=== PATIENT | male | born 1955 | race Caucasian/White ===

== ENCOUNTER → 2017-05-25 | Outpatient (CLI) | payer OTHER ==
[2017-05-25 07:39] LABS: EKG EKG PERFORMED
[2017-05-25 08:22] LABS: Basophils # (A) 0.1 k/uL (0-0.2); Basophils % (A) 1 %; CH 29.7; Eosinophils # (A) 0.3 k/uL (0-0.7); Eosinophils % (A) 3 %; HCT 49.5 % (39.0-53.0); HDW 2.35; HGB 16.1 gm/dL (13.0-17.5); Luc # (Auto) 0.16; Luc % (Auto) 2; Lymphocytes # (A) 3.1 k/uL (1.0-4.8); Lymphocytes % (A) 33 %; MCH 30.4 pg (25.0-35.0); MCHC 32.5 g/dL (31.0-37.0); MCV 93.4 fL (80.0-100.0); Monocytes # (A) 0.5 k/uL (0-1.0); Monocytes % (A) 6 %; Neutrophils # (A) 5.1 k/uL (1.3-7.7); Neutrophils % (A) 56 %; WBC 9.2 k/uL (3.8-10.6); WBC (Perox) 8.88
[2017-05-25 08:37] LABS: Anion Gap 10 mmol/L; Carbon Dioxide 23 mmol/L (22-30); Chloride 107 mmol/L (98-107); Potassium 4.4 mmol/L (3.5-5.1); Sodium 140 mmol/L (137-145)
== END | disposition home or self-care (01) ==
LOC: LABPAT 07:15
PROVIDERS: ATTEND Orthopaedic Surgery
DX: Z01.810 Encounter for preprocedural cardiovascular examination (principal); Z01.812 Encounter for preprocedural laboratory examination; S62.333D Displaced fracture of neck of third metacarpal bone, left hand, subsequent encounter for fracture with routine healing
CPT/HCPCS: 36415; 80051; 85025; 93005

== ENCOUNTER 2017-05-26 11:49 | Day surgery (SDC) | payer OTHER ==
--- NOTE | 2017-05-25 10:07 | HP ---
HISTORY AND PHYSICAL DATE OF SERVICE: 05/26/2017 CHIEF COMPLAINT: Left index finger pain. HISTORY OF PRESENT ILLNESS: The patient is a 61-year-old male who presents with left hand pain after an injury on 05/18/2017. He hit his hand on a rafter in his garage when he slipped on a ladder. Initially he was seen at an urgent care facility and placed in a splint. He denies previous injury. PAST MEDICAL HISTORY: Significant for arthritis. PAST SURGICAL HISTORY: Significant for previous right knee surgery and tonsillectomy. CURRENT ALLERGIES: Ibuprofen. ALLERGIES: He denies drug allergies. FAMILY HISTORY: Negative. SOCIAL HISTORY: Negative for current tobacco or alcohol use. REVIEW OF SYSTEMS: A 16-point review of systems is otherwise reviewed and is noncontributory. PHYSICAL EXAMINATION: On examination, the patient is approximately 5 foot 7, 155 pounds, of mesomorphic habitus. HEENT exam is nonfocal. Neck is supple. He is nontender about the left shoulder, elbow and wrist. On examination of his left hand, he has large dorsal swelling over the index metacarpal. He is tender about the index metacarpal neck. No rotational abnormalities noted. He has moderate digital stiffness. Light touch is distally intact. He is nontender about the carpometacarpal joint of the index finger. DIAGNOSTIC STUDIES: X-rays include 2 views of the left hand obtained in the office showing a comminuted index metacarpal neck fracture with 40 degrees apex dorsal angulation. IMPRESSION: Left index finger comminuted metacarpal neck fracture, angulated. RECOMMENDATIONS: I talked to the patient regarding his treatment options. At this point, he opts to proceed with surgery. We will plan to proceed with closed reduction with probable percutaneous pinning. We will likely perform that as an outpatient procedure. Risks and benefits were discussed at length in layman's terms. MMODL / IJN: [id number] /
[2017-05-25 12:37] VITALS: BMI 25.8
[~2017-05-26 11:49] MED LIST: LACTATED RINGERS 1,000 ML IV SCH; MIDAZOLAM 2 MG/2 ML VIAL IV PRN; MORPHINE SULFATE 10 MG/ML SYRINGE IV PRN; ceFAZolin 1,000 MG in DEXTROSE/WATER 1 50ML.BAG IV ONE
[2017-05-26] MEDS: ONDANSETRON 4 MG/2 ML VIAL IVP PRN ×2 (12:27→14:03)
[2017-05-26] MEDS ORDERED: LIDOCAINE 1% INJ 10MG/ML (20 ML MDV) ONE (13:19)
[2017-05-26] MEDS ORDERED: MIDAZOLAM 2 MG/2 ML VIAL ONE (13:19)
[2017-05-26] MEDS ORDERED: fentaNYL (PF) 50 MCG/ML 2 ML AMP ONE (13:19)
[2017-05-26] MEDS ORDERED: PROPOFOL 10 MG/ML 20 ML VIAL IV ONE (13:19)
--- NOTE | 2017-05-26 14:00 | P.OP ---
Date of Procedure: 05/26/17 Preoperative Diagnosis: Displaced left index metacarpal neck fracture Postoperative Diagnosis: Same Procedure(s) Performed: Closed reduction with percutaneous pinning left index metacarpal neck fracture Implants: 0.054 inch K wire 1 Anesthesia: VENUSA Surgeon: Rey Gonzalez Estimated Blood Loss (ml): 2 Pathology: none sent Condition: stable Disposition: PACU Indications for Procedure: The patient is a 61-year-old male presents after injuring his left hand recently. He sustained a closed displaced/angulated left index finger metacarpal neck fracture. A discussion of the risks and benefits of conservative measures versus operative intervention was made with patient. With the initial amount of angulation and shortening, he opted to proceed with surgery. The risks and benefits of the procedure to include infection, neurovascular injury, development of nonunion/malunion/and possible need for subsequent procedures was discussed. Informed consent was obtained. Operative Findings: As below Description of Procedure: The patient was brought to the operating room, and after induction of general anesthesia the left upper extremity was prepped and draped in normal fashion. The left index metacarpal neck fracture was then reduced with dorsiflexion of the fragment. This is verified with fluoroscopy on the AP, lateral, and oblique views. A 0.054 inch K wire was then inserted in the metacarpal head spanning the fracture site proximally. Good purchase was obtained. Final fluoroscopic view showed adequate reduction of the fracture and placement of the implant. The pin was clipped below the level of the skin. A sterile dressing was applied in addition to a volar splint with the hand in functional position. The patient was awoken from general anesthesia and transferred to recovery room in good condition. Blood loss was estimated 2 mL. No complications were incurred.
[2017-05-26 14:03] VITALS: TEMP 98.6
[2017-05-26] MEDS: HYDROmorphone 1 MG/ML 1 ML SYRINGE IVP ONE ×2 (14:03→14:05)
--- NOTE | 2017-05-26 14:10 | XR ---
EXAMINATION TYPE: XR finger LT, FL guidance operating room DATE OF EXAM: 05/26/2017 CLINICAL HISTORY: Left index finger fracture. TECHNIQUE: Fluoroscopy. Limited intraoperative images left second finger. COMPARISON: None. FINDINGS: Fluoroscopic guidance was provided during closed reduction external fixation procedure per formed by Dr. Gonzalez. A total of 15 seconds of fluoroscopic time was utilized during the procedure an d 3 spot intraoperative images are acquired. Images are acquired show placement of external fixating K wire through second metacarpal. Satisfactor y alignment is seen on intraoperative images saved after reduction and fixation. IMPRESSION: As Above.
[2017-05-26] MEDS ORDERED: KETOROLAC 30 MG/ML 1 ML VIAL IVP ONE (14:20)
[2017-05-26] MEDS ORDERED: HYDROmorphone 1 MG/ML 1 ML SYRINGE IVP ONE (14:20)
[2017-05-26 14:22] VITALS: RESP 16
[2017-05-26] MEDS ORDERED: PROMETHAZINE INJ 25 MG/ML 1 ML VIAL IVPB ONE (14:27)
[2017-05-26 16:03] VITALS: BP 117/70; PULSE 54
== END 2017-05-26 16:40 | disposition home or self-care (01) ==
LOC: OR 11:49
PROVIDERS: ATTEND Orthopaedic Surgery
DX: S62.252A Displaced fracture of neck of first metacarpal bone, left hand, initial encounter for closed fracture (principal); E07.9 Disorder of thyroid, unspecified; Z87.891 Personal history of nicotine dependence; Z88.6 Allergy status to analgesic agent; W18.09XA Striking against other object with subsequent fall, initial encounter; Y92.008 Other place in unspecified non-institutional (private) residence as the place of occurrence of the external cause
CPT/HCPCS: 26608; 73140; C1713; J2250; J2550; J2405; J2001; J3010; J1885; J1170; J2704

== ENCOUNTER 2019-10-16 09:15 | Emergency (ER) | payer OTHER ==
[2019-10-16 09:23] VITALS: TEMP 98.1
[2019-10-16] MEDS ORDERED: ASPIRIN 81 MG PO STA (09:34)
[2019-10-16 09:53] LABS: Basophils % (A) 1 %; Eosinophils # (A) 0.2 k/uL (0-0.7); Eosinophils % (A) 3 %; HCT 46.9 % (39.0-53.0); HGB 15.8 gm/dL (13.0-17.5); Lymphocytes # (A) 3.6 k/uL (1.0-4.8); Lymphocytes % (A) 40 %; MCHC 33.6 g/dL (31.0-37.0); MCV 89.2 fL (80.0-100.0); Mean Platelet Volume 7.8; Monocytes # (A) 0.4 k/uL (0-1.0); Monocytes % (A) 5 %; Neutrophils # (A) 4.3 k/uL (1.3-7.7); Neutrophils % (A) 48 %; Platelet Count 252 k/uL (150-450); RBC 5.25 m/uL (4.30-5.90); RDW 12.7 % (11.5-15.5); WBC 8.9 k/uL (3.8-10.6)
--- NOTE | 2019-10-16 09:58 | XR ---
EXAMINATION TYPE: XR chest 2V DATE OF EXAM: 10/16/2019 HISTORY: Chest Pain. REFERENCE: NONE. FINDINGS: The lungs are overinflated. The lungs are clear. Pleural clear. The heart is not enlarged. IMPRESSION: COPD.
--- NOTE | 2019-10-16 10:01 | ED ---
Chest Pain HPI - General Chief Complaint: Chest Pain Stated Complaint: LEFT CHEST, ARM, BACK PAIN Time Seen by Provider: 10/16/19 09:25 Source: patient, RN notes reviewed Mode of arrival: ambulatory Limitations: no limitations - History of Present Illness Initial Comments: This a 64-year-old male presents emergency Department chief complaint of pain in his left scapular region. Patient states has been present for last 7 days or so he states he does come and go states that he didn't activity all day yesterday which is not worsened it. Patient states that currently his symptoms are gone but states occasionally the pain is worse with movement. He has no associated shortness of breath or anterior chest pain this time no prior cardiac disease. Patient states that he has history of hypothyroidism otherwise does not take any other medications. Patient denies abdominal pain, nausea vomiting no fevers or chills. Patient believes that he may have pulled a muscle. - Related Data Home Medications Medication Instructions Recorded Confirmed Levothyroxine Sodium 100 mcg PO DAILY 10/16/19 10/16/19 Previous Rx's Medication Instructions Recorded Ibuprofen [Motrin] 600 mg PO Q8HR PRN #20 tab 10/16/19 Allergies Allergy/AdvReac Type Severity Reaction Status Date / Time No Known Allergies Allergy Verified 10/16/19 10:51 Review of Systems ROS Statement: Those systems with pertinent positive or pertinent negative responses have been documented in the HPI. ROS Other: All systems not noted in ROS Statement are negative. EKG Findings - EKG Comments: EKG Findings:: EKG performed at 9:35 sinus bradycardia rate of 56 CA 170 QRS 82 QT/QTC 410/395 Past Medical History Past Medical History: No Reported History History of Any Multi-Drug Resistant Organisms: None Reported Past Surgical History: Orthopedic Surgery, Tonsillectomy Additional Past Surgical History / Comment(s): ACL rt knee surgery x 2, rt knee arthroscopy, left index finger fx Past Anesthesia/Blood Transfusion Reactions: Postoperative Nausea & Vomiting (PONV) Past Psychological History: No Psychological Hx Reported Smoking Status: Former smoker Past Alcohol Use History: None Reported Past Drug Use History: None Reported - Past Family History Mother Family Medical History: No Reported History General Exam Limitations: no limitations General appearance: alert, in no apparent distress Head exam: Present: atraumatic, normocephalic, normal inspection Eye exam: Present: normal appearance, PERRL, EOMI. Absent: scleral icterus, conjunctival injection, periorbital swelling ENT exam: Present: normal exam, normal oropharynx, mucous membranes moist Neck exam: Present: normal inspection, full ROM. Absent: tenderness, meningismus, lymphadenopathy Respiratory exam: Present: normal lung sounds bilaterally. Absent: respiratory distress, wheezes, rales, rhonchi, stridor Cardiovascular Exam: Present: regular rate, normal rhythm, normal heart sounds. Absent: systolic murmur, diastolic murmur, rubs, gallop, clicks GI/Abdominal exam: Present: soft, normal bowel sounds. Absent: distended, tenderness, guarding, rebound, rigid Course Vital Signs 10/16/19 10/16/19 10/16/19 09:21 09:37 09:40 Temperature 98.1 F Pulse Rate 76 60 Pulse Rate [ 67 It Service Delivery Manager ] Respiratory 16 14 Rate Blood Pressure 129/82 O2 Sat by Pulse 98 97 Oximetry 10/16/19 10/16/19 10:00 10:30 Temperature Pulse Rate 58 L 58 L Pulse Rate [ It Service Delivery Manager ] Respiratory 14 12 Rate Blood Pressure 150/78 131/89 O2 Sat by Pulse 98 98 Oximetry Chest Pain MDM - MDM 64-year-old male presented for left scapular pain. Patient has a negative workup this time including CBC, CMP, troponin EKG does not reveal any acute MIs does have some reproducible pain and pain with movement. CT of the chest was performed secondary to elevated d-dimer which is negative for PE. I do feel this is related to muscle skeletal. He was evaluated by attending physician, patient recommended to have stress test patient agrees with this plan return parameters were discussed. Disposition Clinical Impression: Posterior chest pain, Muscle strain of chest wall Disposition: HOME SELF-CARE Condition: Stable Instructions (If sedation given, give patient instructions): Muscle Strain (ED) Additional Instructions: Please return to the Emergency Department if symptoms worsen or any other concerns. Prescriptions: Ibuprofen [Motrin] 600 mg PO Q8HR PRN #20 tab PRN Reason: Pain Is patient prescribed a controlled substance at d/c from ED?: No Referrals: Heriberto Lazaro MD [Primary Care Provider] - 1-2 days Time of Disposition: 11:13
[2019-10-16 10:03] LABS: ALT 18 U/L (4-49); AST 34 U/L (17-59); African American GFR (CKD) >90 (>60 ml/min/1.73 sqM); Albumin 4.3 g/dL (3.5-5.0); Alkaline Phosphatase 84 U/L (38-126); Anion Gap 7 mmol/L; Blood Urea Nitrogen 13 mg/dL (9-20); Calcium 9.3 mg/dL (8.4-10.2); Carbon Dioxide 23 mmol/L (22-30); Chloride 107 mmol/L (98-107); Glucose 96 mg/dL (74-99); Non-African American GFR(CKD) 89 (>60 ml/min/1.73 sqM); Potassium 4.1 mmol/L (3.5-5.1); Sodium 137 mmol/L (137-145); Total Bilirubin 0.3 mg/dL (0.2-1.3); Total Protein 7.3 g/dL (6.3-8.2)
[2019-10-16 10:11] LABS: INR 0.9 (<1.2); Partial Thromboplastin Time 27.5 sec (22.0-30.0); Prothrombin Time 9.5 sec (9.0-12.0)
[2019-10-16 10:20] LABS: D-Dimer 0.97 mg/L FEU (<0.60)
--- NOTE | 2019-10-16 10:56 | CT ---
EXAMINATION TYPE: CT chest angio for PE DATE OF EXAM: 10/16/2019 COMPARISON: None. HISTORY: Left sided chest pain. CT DLP: 323.2 mGycm Automated exposure control for dose reduction was used. CONTRAST: CT Chest for pulmonary embolism performed with with IV Contrast, patient injected with 67ml mL of Iso juana 370. FINDINGS: There is mild, diffuse groundglass opacity throughout the lungs. There is associated emphys ematous change. This may represent ongoing alveolitis. Pneumonitis can give a similar appearance. The re is some dependent atelectasis in the dependent portions of the lungs. There is no significant axillary, mediastinal or hilar adenopathy. There is no pleural or pericardial fluid. The heart is not enlarged. There is no evidence of pulmonary embolus. The aorta is normal in caliber without evidence of dissection. Visualized portions of the upper abdomen are unremarkable. There is mild hypertrophic spondylosis within the spine. IMPRESSION: 1. THIS EXAMINATION IS NEGATIVE FOR PULMONARY EMBOLUS. 2. BACKGROUND OF MILD EMPHYSEMATOUS CHANGE WITH ASSOCIATED GROUNDGLASS OPACITY WHICH MAY REPRESENT ON GOING ALVEOLITIS IF THE PATIENT IS A CURRENT SMOKER.
[2019-10-16 11:35] VITALS: BP 138/92; PULSE 59; RESP 17
== END 2019-10-16 11:35 | disposition home or self-care (01) ==
LOC: EC 09:15
DX: S29.011A Strain of muscle and tendon of front wall of thorax, initial encounter (principal); R07.89 Other chest pain; E03.9 Hypothyroidism, unspecified; Z79.890 Hormone replacement therapy; Z87.891 Personal history of nicotine dependence
CPT/HCPCS: 36415; 93005; 85379; 80053; 83735; 84484; 85025; 85610; 85730; 71046; 71275; 99284; Q9967

== ENCOUNTER → 2021-07-02 | Outpatient (CLI) | payer MEDICARE ==
--- NOTE | 2021-07-02 09:51 | MR ---
EXAMINATION TYPE: MR shoulder LT wo con DATE OF EXAM: 07/02/2021 COMPARISON: Shoulder x-ray 01/11/2021 HISTORY: Pain TECHNIQUE: Multiplanar, multisequence imaging of the left shoulder is performed without contrast. FINDINGS: There is diffuse thickening and abnormal signal involving the distal several centimeters of the supraspinatus and infraspinatus tendons. On the distal margin the supraspinatus tendon there is a 1.7 cm through thickness tear. Severe tendinopathy and partial through thickness tear of the infras pinatus tendon. Subscapularis appears intact. Abnormal signal seen involving the superior labrum suspicious for tear. Small amount of fluid is seen at glenohumeral joint and there is arthropathy of the AC joint and glenohumeral joint. Thickening and increased intrasubstance signal of the intracapsular portion of the biceps tendon sugg estive of tendinosis and partial intrasubstance tear. Bicipital tendon is situated in the bicipital g roove. No significant marrow edema or contusion. Suprascapular notch has a normal appearance. IMPRESSION: 1. Diffuse thickening and increased signal involving the distal margin of the supraspinatus and infra spinatus tendons compatible severe tendinosis. There is a through thickness near complete tear of the supraspinatus tendon minimal fibers remaining. 2. There is a through thickness partial tear of the anterior fibers of the infraspinatus tendon. 3. AC joint arthropathy does appear to result in mild mass effect upon the supraspinatus tendon and m uscle. 3. Suspect anterior superior labral tear
== END | disposition home or self-care (01) ==
LOC: RADMRIMAIN 08:22
PROVIDERS: ATTEND Orthopaedic Surgery
DX: M19.012 Primary osteoarthritis, left shoulder (principal); M75.112 Incomplete rotator cuff tear or rupture of left shoulder, not specified as traumatic; M67.814 Other specified disorders of tendon, left shoulder

== ENCOUNTER → 2021-09-02 | Outpatient (CLI) | payer MEDICARE ==
[2021-09-02 22:50] LABS: Basophils # (A) 0.06 X 10*3/uL (0.00-0.10); Basophils % (A) 0.6 %; Eosinophils # (A) 0.16 X 10*3/uL (0.04-0.35); Eosinophils % (A) 1.6 %; HGB 14.7 g/dL (13.0-17.0); Immature Grans, Automated 0.3 %; Lymphocytes # (A) 4.03 X 10*3/uL (0.90-5.00); Lymphocytes % (A) 39.1 %; MCH 29.9 pg (27.0-32.0); MCHC 32.7 g/dL (32.0-37.0); MCV 91.6 fL (80.0-97.0); Mean Platelet Volume 10.4 fL (9.5-12.2); Monocytes # (A) 0.84 X 10*3/uL (0.20-1.00); Monocytes % (A) 8.2 %; NRBC Per 100 WBC 0 /100 WBCS (0.0-0.0); Neutrophils # (A) 5.18 X 10*3/uL (1.80-7.70); Neutrophils % (A) 50.2 %; Platelet Count 261 X 10*3/uL (140-440); RBC 4.91 X 10*6/uL (4.40-5.60); RDW 12.5 % (11.5-14.5)
[2021-09-02 23:13] LABS: African American GFR (CKD) 101.8 (60.0-200.0); Anion Gap 10.4 mmol/L (10.00-18.00); BUN/Creat Ratio 15.52 Ratio (12.00-20.00); Calcium 8.9 mg/dL (8.7-10.3); Carbon Dioxide 22.2 mmol/L (20.0-27.5); Non-African American GFR(CKD) 87.8 (60.0-200.0); Potassium 4.1 mmol/L (3.5-5.5)
== END | disposition home or self-care (01) ==
LOC: LABPAT 15:25
PROVIDERS: ATTEND Orthopaedic Surgery
DX: Z01.812 Encounter for preprocedural laboratory examination (principal); M75.42 Impingement syndrome of left shoulder
CPT/HCPCS: 80048; 85025

== ENCOUNTER 2021-09-06 09:22 | Day surgery (SDC) | payer MEDICARE ==
--- NOTE | 2021-09-05 10:18 | HP ---
HISTORY AND PHYSICAL CHIEF COMPLAINT: Left shoulder pain. HISTORY OF PRESENT ILLNESS: The patient is a 66-year-old, right-hand dominant, retired gentleman who presents with progressive left shoulder pain for the past year. He denies any specific injury. He notes pain with overhead use and at night. It bothers him daily. He has tried medications in addition to therapy without much if any relief. PAST MEDICAL HISTORY: Significant for hypothyroidism. PAST SURGICAL HISTORY: Significant for previous knee surgery, tonsillectomy, and left hand surgery. CURRENT MEDICATIONS: Ibuprofen. ALLERGIES: He denies drug allergies. FAMILY HISTORY: Negative. SOCIAL HISTORY: Negative for current tobacco or alcohol use. REVIEW OF SYSTEMS: 16-point review of systems otherwise reviewed and is noncontributory. PHYSICAL EXAMINATION: On examination, the patient is approximately 5 foot 7, 158 pounds of mesomorphic habitus. HEENT exam is nonfocal. NECK is supple. On the left shoulder, he is tender about the anterior subacromial space. He has mild crepitus. Active range of motion forward elevation 155 degrees, external rotation, arm at side 75 degrees, internal rotation to T12. Motor strength 5 -/5 for external rotation, 4+/5 for abduction. Impingement test, Neer test, and Speed test are positive. His distal neurovascular exam appears intact in the left upper extremity. MRI report 07/02/2021 of the left shoulder shows severe rotator cuff tendinosis along with a 1.7 cm supraspinatus tear. IMPRESSION: 1. Left shoulder impingement with severe rotator cuff tendinitis/symptomatic tear. 2. Left proximal bicipital tendinosis. RECOMMENDATIONS: I talked to the patient at length regarding his condition along with treatment options. At this point, he is quite symptomatic and limited because of pain despite previous conservative measures. After thorough discussion, he opts to proceed with surgery. We will plan to proceed with left shoulder arthroscopy with possible rotator cuff debridement versus repair. We will also plan on subacromial decompression and possible biceps tenotomy. Risks and benefits were discussed at length in layman's terms. MMODL / IJN: [id number] /
[2021-09-05 11:30] VITALS: BMI 25.0
[~2021-09-06 09:22] MED LIST changes: +DEXAMETHASONE SOD PHOSPHATE 4 MG/ML 1 ML VIAL IV ONE; -MORPHINE SULFATE 10 MG/ML SYRINGE IV PRN; +ONDANSETRON 4 MG/2 ML VIAL IVP ONE; -ceFAZolin 1,000 MG in DEXTROSE/WATER 1 50ML.BAG IV ONE
[2021-09-06] MEDS ORDERED: LIDOCAINE 1% (10MG/ML) FOR IV START INTRADERMA ONE (10:11)
[2021-09-06] MEDS ORDERED: fentaNYL (PF) 50 MCG/ML 2 ML AMP IV ONE (10:28)
[2021-09-06] MEDS ORDERED: ePHEDrine 50 MG/ML 1 ML VIAL ONE (11:10)
[2021-09-06] MEDS ORDERED: PROPOFOL 10 MG/ML 20 ML VIAL IV ONE (11:10)
[2021-09-06] MEDS ORDERED: PHENYLEPHRINE-0.9% NACL SYG 1,000 MCG/10 ML SYRINGE ONE (11:10)
[2021-09-06] MEDS ORDERED: SUCCINYLCHOLINE CHLORIDE 100 MG/5 ML SYR IV ONE (11:10)
[2021-09-06] MEDS ORDERED: GLYCOPYRROLATE 0.2 MG/ML 2 ML VIAL ONE (11:10)
[2021-09-06] MEDS ORDERED: ROPIVACAINE 5 MG/ML 30 ML VIAL ONE (11:10)
[2021-09-06] MEDS ORDERED: ROCURONIUM 10 MG/ML (5 ML VIAL) IV ONE (11:10)
[2021-09-06] MEDS ORDERED: fentaNYL (PF) 50 MCG/ML 2 ML AMP ONE (11:10)
[2021-09-06] MEDS ORDERED: LIDOCAINE 1% INJ 10MG/ML (20 ML MDV) ONE (11:10)
[2021-09-06] MEDS ORDERED: NEOSTIGMINE 1 MG/ML 10 ML VIAL ONE (11:10)
[2021-09-06] MEDS ORDERED: MIDAZOLAM 2 MG/2 ML VIAL ONE (11:10)
--- NOTE | 2021-09-06 11:12 | P.ANPRN ---
Procedure Note - Anesthesia - Nerve Block Performed Left Interscalene Single Time Out Performed: Yes (1028) Date of Procedure: 09/06/21 Procedure Start Time: 10:29 Procedure Stop Time: 10:35 Location of Patient: PreOp Indication: Acute Post-Operative Pain, Requested by Surgeon Specifically requested for management of pain by : Rey Gonzalez Sedation Type: Sedate with meaningful contact maintained Preparation: Sterile Prep Position: Supine Catheter: None Needle Types: Pajunk Needle Gauge: 21 Ultrasound used to visualize needle placement: Yes Ultrasound used to observe medication spread: Yes Injectate: 0.5% Ropivacaine (see comment for volume) (30) Blood Aspirated: No Pain Paresthesia on Injection Noted: No Resistance on Injection: Normal Image Stored and Saved: Yes Events: Uneventful and Well Tolerated
[2021-09-06] MEDS ORDERED: EPINEPHRINE IRRIGATION ONE (11:40)
[2021-09-06] MEDS ORDERED: SODIUM CHLORIDE IRRIGATION ONE (11:40)
[2021-09-06] MEDS ORDERED: LACTATED RINGERS 1,000 ML IV ONE (12:33)
--- NOTE | 2021-09-06 12:43 | P.OP ---
Date of Procedure: 09/06/21 Preoperative Diagnosis: Symptomatic left rotator cuff tear Postoperative Diagnosis: 3 cm left rotator cuff tear/high-grade partial-thickness tear intra-articular portion long head of biceps Procedure(s) Performed: Left shoulder arthroscopic subacromial decompression/biceps tenotomy/rotator cuff repair Implants: Arthrex 4.75 mm swivel lock anchor 2, 5.5 mm swivel lock anchor 2 Anesthesia: EZE, kirti Surgeon: Rey Gonzalez [employer] Spring Upholsterer #1: Nikita Sanford Estimated Blood Loss (ml): 10 Pathology: none sent Condition: stable Disposition: PACU Indications for Procedure: The patient's a 66-year-old male who presents with progressive left shoulder pain despite conservative measures. A discussion of the risks and benefits of operative intervention versus continued conservative measures was made with patient. He opted to proceed with surgery. Operative risks to include infection, neurovascular injury, development of blood clots, possible tendon rerupture, possible need for subsequent procedures was discussed. Informed c onsent was obtained. Operative Findings: As below Description of Procedure: The patient was brought to the operating room, and after induction of general anesthesia was placed in a beachchair position. A preoperative interscalene block was placed for postoperative analgesia. I examined the left shoulder. There was no gross block to passive motion or gross glenohumeral instability. The left upper extremity was prepped and draped in normal fashion. The bony outlines the acromion, distal clavicle, and coracoid process were outlined with a skin marker. The glenohumeral joint was inflated with 50 mL of saline utilizing a spinal needle from posterior approach. A posterior portal was made through a 5 mm skin incision 1 cm medial and inferior to the posterior lateral border time. A blunt trocar was used to easily into the joint. Diagnostic arthroscopy was performed. An anterior portal was made just lateral to the coracoid process entering the joint above the subscapularis tendon. The subscapularis tendon appeared to be intact. Anterior labrum was intact. The inferior recess was inspected. The posterior labrum was intact. There was a high-grade partial-thickness tear of the long head of the biceps involving interarticular portion. It was elected to proceed with release at this point. This was released from the superior labrum with electrocautery and was allowed to retract to the bicipital groove. On inspection the rotator cuff, a full- thickness tear involving the supraspinatus and a portion of the infraspinatus was noted. The arthroscope was placed into the subacromial space. A lateral portal was made 2 centimeters inferior to the anterior lateral border of the acromion. The rotator cuff was then mobilized with a traction suture. This was then easily brought back to the greater tuberosity. The soft tissue on the undersurface of the acromion was debrided with a motorized shaver and electrocautery clearly defining the anterior medial and lateral borders as well as the distal clavicle. An anterior inferior acromioplasty was performed with a motorized guerline starting anterolateral, then extending this posteriorly, then extending this medially. I converted to a flat acromion and this was verified in the posterior and lateral viewing portals. The greater tuberosity was lightly decorticating with a shaver down to a bleeding bony surface. An accessory superior lateral portals made just off the lateral edge of the acromion for anchor placement. 2 anchors were then placed just off the articular surface with the appropriate starting awl. 4.75 mm anchors preloaded with #2 fiber tape were placed. Good purchase was obtained. These fiber tapes were then passed the rotator cuff with a scorpion suture passer. A lateral row was created crisscrossing these tapes. 5.5 mm swivel lock anchors x2 were placed laterally. Good purchase was obtained. Final arthroscopic view showed adequate compression at the footprint. The arthroscope was then removed. The portals were closed with simple 3-0 nylon sutures. A sterile dressing was applied in addition to a sling. The patient was then awoken from general anesthesia and transferred to recovery room in good condition. Blood loss was estimated at 10 mL. No complications were incurred. Sponge and needle counts were correct in the case. Nikita VERA assisted and the major components of the case to include arm positioning, anchor placement, and rotator cuff repair.
[2021-09-06] MEDS: HYDROmorphone 0.5 MG/0.5 ML SYRINGE IVP PRN ×3 (12:52→13:05)
[2021-09-06 13:01] VITALS: TEMP 97
[2021-09-06] MEDS: fentaNYL (PF) 50 MCG/ML 2 ML AMP IVP ONE ×2 (13:20→13:33)
[2021-09-06 16:06] VITALS: RESP 16
[2021-09-06 16:18] VITALS: BP 119/64; PULSE 65
== END 2021-09-06 16:45 | disposition home or self-care (01) ==
LOC: OR 09:22
PROVIDERS: ATTEND Orthopaedic Surgery
DX: M75.42 Impingement syndrome of left shoulder (principal); M75.102 Unspecified rotator cuff tear or rupture of left shoulder, not specified as traumatic; E03.9 Hypothyroidism, unspecified; S46.112A Strain of muscle, fascia and tendon of long head of biceps, left arm, initial encounter; X58.XXXA Exposure to other specified factors, initial encounter; F17.210 Nicotine dependence, cigarettes, uncomplicated; E07.9 Disorder of thyroid, unspecified; F41.9 Anxiety disorder, unspecified; K21.9 Gastro-esophageal reflux disease without esophagitis; Z79.890 Hormone replacement therapy; Z79.1 Long term (current) use of non-steroidal anti-inflammatories (NSAID); Z79.891 Long term (current) use of opiate analgesic
CPT/HCPCS: 64415; 76942; 29826; 29827; C1713 ×3; C1894; J2250; J1100; J2710; J0690; J2405; J0171; J2001; J3010; J2795; J2370; J0330; J2704; J1170

== ENCOUNTER → 2022-02-05 | Day surgery (SDC) | payer MEDICARE ==
[2022-02-04 12:39] VITALS: BMI 25.0
[~2022-02-05] MED LIST changes: -DEXAMETHASONE SOD PHOSPHATE 4 MG/ML 1 ML VIAL IV ONE; +LIDOCAINE 1% (10MG/ML) FOR IV START INTRADERMA PRN; +LIDOCAINE 2% INJ 20 MG/ML (2 ML VIAL) ONE; -MIDAZOLAM 2 MG/2 ML VIAL IV PRN; -ONDANSETRON 4 MG/2 ML VIAL IVP ONE; +PROPOFOL 10 MG/ML 20 ML VIAL IV ONE
[2022-02-05 10:14] VITALS: RESP 16; TEMP 97.4
--- NOTE | 2022-02-05 11:19 | P.PCN ---
Date of Procedure: 02/05/22 Procedure(s) Performed: BRIEF HISTORY: Patient is a 66-year-old pleasant white may scheduled for an elective colonoscopy as a part of screening for colorectal neoplasia PROCEDURE PERFORMED: Colonoscopy. PREOPERATIVE DIAGNOSIS: Screening for colon cancer. IV sedation per Anesthesia. PROCEDURE: After informed consent was obtained, the patient, was brought into the endoscopy unit. IV sedation was administered by Anesthesia under continuous monitoring. Digital rectal examination was normal. Initially the Olympus CF-160 flexible video colonoscope was then inserted in the rectum, gradually advanced into the cecum without any difficulty. Careful examination was performed as the scope was gradually being withdrawn. Ileocecal valve and the appendiceal orifice were visualized and appeared normal. Prep was excellent. Mucosa of the cecum, ascending colon, transverse colon, descending colon, sigmoid colon, and rectum appeared normal. Scattered sigmoid diverticulosis. Retroflexion was performed in the rectum and no lesions were seen. The patient tolerated the procedure well. IMPRESSION: Normal-appearing colon from rectum to cecum with no evidence of colorectal neoplasia Scattered sigmoid diverticula. RECOMMENDATIONS: Findings of this examination were discussed with the patient as well as his family. He was advised to have a repeat screening colonoscopy in 10 years..
[2022-02-05 11:37] VITALS: BP 128/73; PULSE 63
== END ==
LOC: ORWHC2ENDO 09:04
PROVIDERS: ATTEND Internal Medicine Gastroenterology
DX: Z12.11 Encounter for screening for malignant neoplasm of colon (principal); K57.30 Diverticulosis of large intestine without perforation or abscess without bleeding; Z79.899 Other long term (current) drug therapy; E07.9 Disorder of thyroid, unspecified; K21.9 Gastro-esophageal reflux disease without esophagitis
CPT/HCPCS: J2704; J2001; G0121; 45378

== ENCOUNTER 2023-12-11 18:48 | Emergency (ER) | payer MEDICARE ==
[2023-12-11 18:59] VITALS: BP 140/86; PULSE 75; RESP 18; TEMP 98.2
[2023-12-11] MEDS: ORPHENADRINE 30 MG/ML 2 ML VIAL IVP STA (19:50)
[2023-12-11] MEDS: HYDROmorphone 0.5 MG/0.5 ML SYRINGE IVP STA (19:51)
[2023-12-11] MEDS: KETOROLAC 15 MG/ML 1 ML VIAL IVP STA (22:17)
--- NOTE | 2023-12-11 22:45 | CT ---
EXAMINATION TYPE: CT chest wo con CT DLP: 355.3 mGycm, Automated exposure control for dose reduction was used. DATE OF EXAM: 12/11/2023 8:18 PM COMPARISON: None. . CLINICAL INDICATION:Male, 68 years old with history of right sided injury; PHH, Fall, right rib pain TECHNIQUE: Multiple axial images were obtained through the chest. Sagittal and coronal reformats were created for review. Contrast used: mL of (None if empty) Oral contrast used: (None if empty) FINDINGS: LUNGS/ PLEURA: The lung volumes are diminished and there is mild stranding basilar opacity suggesting airspace disease. There is no significant consolidation, pleural effusion, or pneumothorax. Mild api jose emphysema. Thyroid appears grossly unchanged. AIRWAY: Central airways are patent. LOWER NECK: No significant findings. MEDIASTINUM: No enlarged nodes by CT size criteria. HEART: Normal heart size. . VASCULATURE: Mild atherosclerotic calcifications of the aorta and branches. Ascending aorta is 3.2 C M, descending is 3 CM. Aorta is considered Pulmonary trunk measures 2.6 CM. Pulmonary trunk is normal in size. SOFT TISSUES/LYMPH NODES: Unremarkable soft tissues. No axillary adenopathy. UPPER ABDOMEN: Limited cuts demonstrate no mass of the visualized adrenals. MUSCULOSKELETAL: Acute appearing displaced fracture of the right lateral eighth rib. Mild degenerativ e changes. IMPRESSION: * Acute mildly displaced fracture of the right lateral eighth rib. * No acute abnormality otherwise within in the chest.
--- NOTE | 2023-12-12 01:41 | ED ---
General Adult HPI - General Chief complaint: Fall Stated complaint: Fall, no thinners Time Seen by Provider: 12/11/23 19:08 Source: patient, RN notes reviewed Mode of arrival: ambulatory Limitations: no limitations - History of Present Illness Initial comments: 68-year-old male presents to the emergency department for evaluation of right- sided rib pain. Patient states that he took a fall on Thursday and since then has had pain in the right side of his rib cage. Patient reports that he fell and hit his right side on the corner of the table. He states that this has gotten worse over the past couple of days. He reports that it is worse with movements and inspiration. He does report hitting his head with the injury. He states that this was minor and did not cause him any pain. He denies blood thinners, loss of consciousness, headache, vomiting. - Related Data Home Medications Medication Instructions Recorded Confirmed Levothyroxine Sodium 112 mcg PO QAM 07/31/21 02/05/22 Amoxicillin 500 mg PO Q12H 02/04/22 02/05/22 Allergies Allergy/AdvReac Type Severity Reaction Status Date / Time No Known Allergies Allergy Verified 12/11/23 18:58 Review of Systems ROS Statement: Those systems with pertinent positive or pertinent negative responses have been documented in the HPI. ROS Other: All systems not noted in ROS Statement are negative. Past Medical History Past Medical History: Thyroid Disorder Additional Past Medical History / Comment(s): currently being tx with amoxicillin for infected tooth History of Any Multi-Drug Resistant Organisms: None Reported Past Surgical History: Orthopedic Surgery, Tonsillectomy Additional Past Surgical History / Comment(s): ACL rt knee surgery x 2, rt knee arthroscopy, left index finger fx,lt rot cuff repair Past Anesthesia/Blood Transfusion Reactions: Postoperative Nausea & Vomiting (PONV) Past Psychological History: No Psychological Hx Reported Smoking Status: Current some day smoker Past Alcohol Use History: None Reported Past Drug Use History: None Reported - Past Family History Mother Family Medical History: No Reported History General Exam Limitations: no limitations General appearance: alert, in distress (d/t pain) Head exam: Present: atraumatic, normocephalic, normal inspection Eye exam: Present: normal appearance, PERRL, EOMI. Absent: scleral icterus, conjunctival injection, periorbital swelling ENT exam: Present: normal exam, mucous membranes moist Neck exam: Present: normal inspection. Absent: tenderness, meningismus, lymphadenopathy Respiratory exam: Present: normal lung sounds bilaterally, chest wall tenderness (right sided lateral). Absent: respiratory distress, wheezes, rales, rhonchi, stridor Cardiovascular Exam: Present: regular rate, normal rhythm, normal heart sounds. Absent: systolic murmur, diastolic murmur, rubs, gallop, clicks GI/Abdominal exam: Present: soft, normal bowel sounds. Absent: distended, tenderness, guarding, rebound, rigid Extremities exam: Present: normal inspection, full ROM, normal capillary refill. Absent: tenderness, pedal edema, joint swelling, calf tenderness Back exam: Present: normal inspection Neurological exam: Present: alert, oriented X3 Psychiatric exam: Present: normal affect, normal mood Skin exam: Present: warm, dry, intact, normal color. Absent: rash Course Vital Signs 12/11/23 18:54 Temperature 98.2 F Pulse Rate 75 Respiratory 18 Rate Blood Pressure 140/86 O2 Sat by Pulse 97 Oximetry Medical Decision Making - Medical Decision Making Was pt. sent in by a medical professional or institution (, PA, [employer], urgent care, hospital, or [facility]...) When possible be specific @ -No Did you speak to anyone other than the patient for history (EMS, parent, family, police, friend...)? What history was obtained from this source @ -No Did you review nursing and triage notes (agree or disagree)? Why? @ -I reviewed and agree with nursing and triage notes Were old charts reviewed (outside hosp., previous admission, EMS record, old EKG, old radiological studies, urgent care reports/EKG's, [facility] records)? Report findings @ -No old charts were reviewed Differential Diagnosis (chest pain, altered mental status, abdominal pain women, abdominal pain men, vaginal bleeding, weakness, fever, dyspnea, syncope, headache, dizziness, GI bleed, back pain, seizure, CVA, palpatations, mental health, musculoskeletal)? @ -Differential Chest Pain: Stable Angina, Unstable Angina, STEMI, NSTEMI Aortic Dissection, Pneumothorax, Musculoskeletal, Esophageal Spasm GERD, Cholecystitis, Pancreatitis, Zoster, this is not meant to be an all-inclusive list. EKG interpreted by me (3pts min.). @ -None X-rays interpreted by me (1pt min.). @ -None done CT interpreted by me (1pt min.). @ -CT of the chest was obtained which shows a mildly displaced fracture of the eighth rib laterally U/S interpreted by me (1pt. min.). @ -None done What testing was considered but not performed or refused? (CT, X-rays, U/S, labs)? Why? @ -None What meds were considered but not given or refused? Why? @ -None Did you discuss the management of the patient with other professionals (professionals i.e. , PA, [employer], lab, RT, psych nurse, foster care social worker, magazine hand, teacher, national insurance officer, counseling case manager)? Give summary @ -No Was smoking cessation discussed for >3mins.? @ -No Was critical care preformed (if so, how long)? @ -No Were there social determinants of health that impacted care today? How? (Homelessness, low income, unemployed, alcoholism, drug addiction, transportation, low edu. Level, literacy, decrease access to med. care, custodial, rehab)? @ -No Was there de-escalation of care discussed even if they declined (Discuss DNR or withdrawal of care, Hospice)? DNR status @ -No What co-morbidities impacted this encounter? (DM, HTN, Smoking, COPD, CAD, Cancer, CVA, ARF, Chemo, Hep., AIDS, mental health diagnosis, sleep apnea, morbid obesity)? @ -None Was patient admitted / discharged? Hospital course, mention meds given and route, prescriptions, significant lab abnormalities, going to OR and other pertinent info. @ -Patient left prior to receiving discharge paperwork. Patient presented to the emergency department for evaluation of right chest wall pain following a fall. He was provided medication for pain control in the emergency department. He underwent a chest CT which showed a mildly displaced fracture of the eighth rib. Results were significantly delayed due to increased radiology read time. Patient was then informed of the results. He became angry and attempted to leave the emergency department prior to receiving discharge instructions, inc entive spirometer or prescription for pain medication. Undiagnosed new problem with uncertain prognosis? @ -No Drug Therapy requiring intensive monitoring for toxicity (Heparin, Nitro, Insulin, Cardizem)? @ -No Were any procedures done? @ -No Diagnosis/symptom? @ -Rib fracture Acute, or Chronic, or Acute on Chronic? @ -Acute Uncomplicated (without systemic symptoms) or Complicated (systemic symptoms)? @ -Uncomplicated Side effects of treatment? @ -No Exacerbation, Progression, or Severe Exacerbation? @ -No Poses a threat to life or bodily function? How? (Chest pain, [place], [place], pneumonia, PE, COPD, DKA, ARF, appy, cholecystitis, CVA, Diverticulitis, Homicidal, Suicidal, threat to staff... and all critical care pts) @ -No Disposition Clinical Impression: Fall, Rib fracture Disposition: LEFT AGAINST MEDICAL ADVICE Condition: Stable Is patient prescribed a controlled substance at d/c from ED?: No Referrals: Heriberto Lazaro MD [Primary Care Provider] - 1-2 days
== END 2023-12-11 23:15 | disposition left against medical advice (07) ==
LOC: EC 18:48
DX: S22.31XA Fracture of one rib, right side, initial encounter for closed fracture (principal); F17.200 Nicotine dependence, unspecified, uncomplicated; Z53.29 Procedure and treatment not carried out because of patient's decision for other reasons; W18.09XA Striking against other object with subsequent fall, initial encounter
CPT/HCPCS: 71250; 99284; 96374; 96375 ×2; J2360; J1885; J1170

== ENCOUNTER → 2024-05-28 | Outpatient (CLI) | payer MEDICARE ==
[2024-05-28 12:51] LABS: HCT 52.5 % (39.6-50.0); HGB 17.2 g/dL (13.0-17.0); MCH 29.5 pg (27.0-32.0); MCHC 32.8 g/dL (32.0-37.0); MCV 89.9 FL (80.0-97.0); Mean Platelet Volume 10.4 FL (9.5-12.2); NRBC Per 100 WBC 0 X 10*3/uL (0.00-0.01); Platelet Count 236 X 10*3/uL (140-440); RBC 5.84 X 10*6/uL (4.40-5.60); RDW 13.1 % (11.5-14.5); WBC 8.91 X 10*3/uL (4.50-10.00)
[2024-05-28 13:18] LABS: ALT 13 U/L (10-49); AST 18 U/L (14-35); Albumin 4.6 g/dL (3.8-4.9); Albumin/Globulin Ratio 1.59 Ratio (1.60-3.17); Alkaline Phosphatase 100 U/L (41-126); BUN/Creat Ratio 11.78 Ratio (12.00-20.00); Blood Urea Nitrogen 10.6 mg/dL (9.0-27.0); Calcium 9.7 mg/dL (8.7-10.3); Carbon Dioxide 25.8 mmol/L (21.6-31.8); Chloride 104 mmol/L (96-109); Chol/HDL Ratio 5.73 Ratio; Globulin 2.9 g/dL (1.6-3.3); Glucose 91 mg/dL (70-110); LDL Cholesterol,Calculated 152.8 mg/dL (0.0-131.0); Potassium 4.7 mmol/L (3.5-5.5); Sodium 139 mmol/L (135-145); T4, Free (Free Thyroxine) 1.14 ng/dL (0.80-1.80); Total Bilirubin 0.3 mg/dL (0.3-1.2); Total Protein 7.5 g/dL (6.2-8.2)
== END | disposition home or self-care (01) ==
LOC: LABWHC1 07:57
PROVIDERS: ATTEND Family Medicine
DX: Z00.01 Encounter for general adult medical examination with abnormal findings (principal); E03.9 Hypothyroidism, unspecified; E66.3 Overweight; N40.1 Benign prostatic hyperplasia with lower urinary tract symptoms; R53.83 Other fatigue
CPT/HCPCS: 36415; 80053; 80061; 84153; 84439; 84443; 84481; 85027